=== PATIENT | female | born 1950 | race African-American/Black ===

== ENCOUNTER 2020-02-02 13:39 | Inpatient (IN) | payer BC ==
[~2020-02-02] VITALS: Ht 170.2 cm; Wt 70.3 kg
[2020-02-02] MEDS ORDERED: Morphine Sulfate 2mg/ml Inj(IV/IM USE ONLY) IVP ONE (14:00)
--- NOTE | 2020-02-02 14:30 | NUR ---
ED Nurse Note:pt. was BIBA from home with left ankle deformity and pain, s/p fall today, VSS, x-rays were done, pain meds given
[2020-02-02 14:41] LABS: BASOPHILS % (AUTO) 1.2 % (0.0-2.0); EOSINOPHILS % (AUTO) 1.4 % (0.0-3.0); HEMATOCRIT 37.6 % (37.0-47.0); HEMOGLOBIN 12.4 G/DL (12.0-16.0); LYMPHOCYTES % (AUTO) 32.2 % (20.0-45.0); MEAN CORPUSCULAR VOLUME 105 FL (80-99); MONOCYTES % (AUTO) 8.3 % (1.0-10.0); NEUTROPHILS % (AUTO) 56.9 % (45.0-75.0); PLATELET COUNT 237 K/UL (150-450); RED BLOOD COUNT 3.58 M/UL (4.20-5.40); RED CELL DISTRIBUTION WIDTH 12.7 % (11.6-14.8); WHITE BLOOD COUNT 6.4 K/UL (4.8-10.8)
[2020-02-02 14:52] LABS: CREATININE 1.1 MG/DL (0.55-1.30); POTASSIUM 3.7 MMOL/L (3.5-5.1)
--- NOTE | 2020-02-02 14:58 | Emergency Room Report ---
History of Present Illness General Chief Complaint: Lower Extremity Injury Source: Patient Present Illness HPI 69-year-old female presents to the emergency department complaining of 10 out of 10 severity pain to the bilateral ankles status post mechanical trip and fall approximately 1 hour prior to arrival. Patient describes missing a step. She denies dizziness, chest pain/palpitations or syncope. Patient denies hitting her head or having a loss of consciousness. She denies midline neck or back pain. She reports deformity of the left ankle. She denies paresthesias. She reports she is unable to bear weight. She denies any significant past medical history she denies taking any medications and did not take any hfun-[id number]-[id number] medications prior to arrival. She denies open wounds or bleeding. Allergies: Coded Allergies: No Known Allergies (Unverified , 02/02/20) COVID-19 Screening Contact w/high risk pt: No Experienced COVID-19 symptoms?: No COVID-19 Testing performed COMPLAINT INSPECTOR: No Patient History Past Medical History: see triage record Past Surgical History: none Pertinent Family History: none Now: No Reviewed Nursing Documentation: PMH: Agreed; PSxH: Agreed Nursing Documentation-PMH Past Medical History: No Stated History Review of Systems All Other Systems: negative except mentioned in HPI Physical Exam Vital Signs Date Time Temp Pulse Resp B/P (MAP) Pulse Ox O2 Delivery O2 Flow Rate FiO2 02/02/20 13:35 98.4 96 19 129/73 (91) 97 Room Air Sp02 EP Interpretation: reviewed, normal General Appearance: no apparent distress, alert, GCS 15, non-toxic Head: normocephalic, atraumatic Eyes: bilateral eye normal inspection, bilateral eye PERRL ENT: hearing grossly normal, normal voice Neck: full range of motion Respiratory: chest non-tender, lungs clear, normal breath sounds, speaking full sentences Cardiovascular #1: regular rate, rhythm, normal capillary refill Cardiovascular #2: 2+ dorsalis pedis (R), 2+ dorsalis pedis (L) Musculoskeletal: back normal, tender - proximal left index finger, FROM with some pain, other - Tenderness, swelling and and visible obvious deformity to the left ankle. 2+ dorsalis pedis and normal cap refill as well as normal sensation. There is tenderness to palpation but without swelling or deformity of the right ankle. Patient is in in the right foot as well. Neurologic: alert, motor strength/tone normal, oriented x3, sensory intact, responsive, speech normal Psychiatric: judgement/insight normal Skin: normal color Procedures Joint Reduction Joint Reduction : Consent: Verbal Joint Reduction Site: other - ankle Procedural Sedation: No Reduction Attempts: One Pre-Procedure NV Exam: Yes Post-Procedure NV Exam: Yes Post Joint Reduction Film: joint reduced Patient Tolerated: Well Complications: None Progress Patient was placed in short leg posterior with stirrup patient remains NBI both prior to and after application of the splint Medical Decision Making PA Attestation Dr. Cannon is my supervising Physician whom patient management has been discussed with. Diagnostic Impression: Primary Impression: Trimalleolar fracture of left ankle Qualified Codes: S82.852A - Displaced trimalleolar fracture of left lower leg, initial encounter for closed fracture Additional Impressions: Lateral malleolar fracture Qualified Codes: S82.64XA - Nondisplaced fracture of lateral malleolus of right fibula, initial encounter for closed fracture Finger fracture, left Qualified Codes: S62.641A - Nondisplaced fracture of proximal phalanx of left index finger, initial encounter for closed fracture ER Course 69-year-old female presents to the emergency department complaining of 10 out of 10 severity pain to the bilateral ankles status post mechanical trip and fall approximately 1 hour prior to arrival. Patient describes missing a step. She denies dizziness, chest pain/palpitations or syncope. Patient denies hitting her head or having a loss of consciousness. She denies midline neck or back pain. She reports deformity of the left ankle. She denies paresthesias. She reports she is unable to bear weight. She denies any significant past medical history she denies taking any medications and did not take any cmxj-xyz-szifcqa medications prior to arrival. She denies open wounds or bleeding. Ddx considered but are not limited to Fracture, dislocation, contusion, Sprain/Strain/Spasm, vascular injury Vital signs: are WNL, pt. is afebrile H&PE are most consistent with musculoskeletal injury will perform imaging to r/o fractures/dislocations. ORDERS: - X-ray Left ankle : Dislocation and fx's - x-ray Right ankle: lateral malleolar fx. --Preop labs: CBC, CMP and coags are within normal limits. -Type and screen: O Positive ED INTERVENTIONS: Left ankle was reduced and splinted in a short leg posterior splint. MVI before and after both procedures. Post reduction x-ray film shows improved anatomical positioning. Patient also reports that she had decrease in pain afterwards. - Morphine 2mg IV -Morphine 4mg IV On-call orthopedist Dr. Guerrier is consulted. Recommend admit and surgical intervention. DISPOSITION: at this time pt. will be admitted to Dr. Oh for trimalleolar fracture of the left ankle requiring surgical intervention Dr. Oh agreed to admit the pt. and to continue pt. care management. Labs Test 02/02/20 14:15 White Blood Count 6.4 K/UL (4.8-10.8) Red Blood Count 3.58 M/UL (4.20-5.40) Hemoglobin 12.4 G/DL (12.0-16.0) Hematocrit 37.6 % (37.0-47.0) Mean Corpuscular Volume 105 FL (80-99) Mean Corpuscular Hemoglobin 34.8 PG (27.0-31.0) Mean Corpuscular Hemoglobin Concent 33.1 G/DL (32.0-36.0) Red Cell Distribution Width 12.7 % (11.6-14.8) Platelet Count 237 K/UL (150-450) Mean Platelet Volume 7.0 FL (6.5-10.1) Neutrophils (%) (Auto) 56.9 % (45.0-75.0) Lymphocytes (%) (Auto) 32.2 % (20.0-45.0) Monocytes (%) (Auto) 8.3 % (1.0-10.0) Eosinophils (%) (Auto) 1.4 % (0.0-3.0) Basophils (%) (Auto) 1.2 % (0.0-2.0) Prothrombin Time 10.8 SEC (9.30-11.50) Prothromb Time International Ratio 1.0 (0.9-1.1) Activated Partial Thromboplast Time 24 SEC (23-33) Sodium Level 140 MMOL/L (136-145) Potassium Level 3.7 MMOL/L (3.5-5.1) Chloride Level 107 MMOL/L (98-107) Carbon Dioxide Level 26 MMOL/L (21-32) Anion Gap 7 mmol/L (5-15) Blood Urea Nitrogen 10 mg/dL (7-18) Creatinine 1.1 MG/DL (0.55-1.30) Estimat Glomerular Filtration Rate 49.4 mL/min (>60) Glucose Level 102 MG/DL (74-106) Calcium Level 9.0 MG/DL (8.5-10.1) EKG Diagnostic Results Troponin ordered: No - pre-op, not cardiac EKG Time: 16:40 Rate: normal - 65 bpm Rhythm: NSR ST Segments: no acute changes ASA given to the pt in ED: No PA Scribe Text This Interpretation was scribed by ELIDA Fuller. Chest X-Ray Diagnostic Results Chest X-Ray Diagnostic Results : Chest X-Ray Ordered: Yes # of Views/Limited/Complete: 1 View Indication: Other - Preoperative EP Interpretation: Yes PA Xray: Interpretation reviewed, by supervising MD, and agrees with findings. Interpretation: no consolidation, no effusion, no pneumothorax, no acute cardiopulmonary disease, other Impression: No acute disease Electronically Signed by: Daniella Fuller PA-C Other X-Ray Diagnostic Results Other X-Ray Diagnostic Results #1: X-Ray ordered: Left Ankle # of Views/Limited Vs Complete: 3 View Indication: Pain EP Interpretation: Yes PA Xray: Interpretation reviewed, by supervising MD, and agrees with findings. Interpretation: other - Posterior dislocation of the ankle in the presence of trimalleolar fracture Impression: Other - Abnormal Electronically Signed by: Daniella Fuller PA-C Other X-Ray Diagnostic Results #2: X-Ray ordered: Right ankle # of Views/Limited Vs Complete: 3 View Indication: Pain EP Interpretation: Yes PA Xray: Interpretation reviewed, by supervising MD, and agrees with findings. Interpretation: no dislocation, other - Nondisplaced fracture of the lateral malleolusdistal tibia Impression: Other - Abnormal Electronically Signed by: Daniella Fuller PA-C Other X-Ray Diagnostic Results #3: X-Ray ordered: X-ray Left fingers # of Views/Limited Vs Complete: 3 View Indication: Pain EP Interpretation: Yes PA Xray: Interpretation reviewed, by supervising , and agrees with findings. Interpretation: no dislocation, no soft tissue swelling, other - proximal Metacarpal fx of the 2nd phalynx Impression: No acute disease Electronically Signed by: Daniella Fuller PA-C Last Vital Signs Date Time Temp Pulse Resp B/P (MAP) Pulse Ox O2 Delivery O2 Flow Rate FiO2 02/02/20 14:53 98.5 02/02/20 13:35 96 19 129/73 (91) 97 Room Air Status: improved Disposition: ADMITTED INPATIENT Condition: Serious Scripts No Active Prescriptions or Reported Meds Daniella Fuller Feb 02, 2020 14:57
[2020-02-02] MEDS ORDERED: Morphine Sulfate 4mg/ml Inj (IV USE ONLY) IVP ONE (15:00)
--- NOTE | 2020-02-02 16:00 | NUR ---
ED Nurse Note:splints were placed on bilateral lower legs
[2020-02-02 18:14] VITALS: BP 124/75
--- NOTE | 2020-02-02 18:18 | NUR ---
ED Nurse Note:called report to [facility]-given to Susan pt. is stable for transfer up stairs
--- NOTE | 2020-02-02 18:40 | NUR ---
NURSE NOTES: Received pt from ER and report from SLICK Hardin. Pt was transferred via gurney. Pt alert and oriented x4, in RA, No respiratory distress note. Denied pain at this time. Checked vital signs, stable. All belongings were accounted for. Oriented pt to room. Bed in low position, locked. Side rails upx2. Call light within reach.
[2020-02-02] MEDS ORDERED: Miralax 17gm pkt ORAL PRN (18:45)
[2020-02-02] MEDS ORDERED: Zolpidem 5mg tab ORAL PRN (18:45)
[2020-02-02] MEDS ORDERED: D5 1/2NS 1,000 ML IV SCH (18:45)
--- NOTE | 2020-02-02 19:30 | NUR ---
NURSE NOTES: Receive a report from SLICK Marshall.
--- NOTE | 2020-02-02 19:36 | NUR ---
NURSE HAND-OFF: Important Events on Shift:[Admission] Patient Status: [stable] Diet: [NPO at midnight] Pending Orders: [] Pending Results/Labs:[] Pending MD notification:[] Latest Vital Signs: Temperature 98.5 , Pulse 86 , B/P 124 /75 , Respiratory Rate 19 , O2 SAT 97 , Room Air, O2 Flow Rate . Vital Sign Comment: [stable] Latest Ames Fall Score: Fall Risk: Safety Measures: Call light , Bed Alarm , Side Rails , Bed position . Fall Precautions: Report given to [KonstantinRN].
--- NOTE | 2020-02-02 19:40 | NUR ---
NURSE NOTES: Pt is awake and alert. No acute distress noted. Pain on fracture sites on ankles is tolerating. Sensory intact. On splint on left ankle with elevation. IV is on left AC without infiltration. Skin intact. Given unit orientation. Bed is lowest. Call light within reach. Will continue to monitor.
[2020-02-02 20:00] VITALS: BP 135/87
[2020-02-02] MEDS: Heparin 5000 units/ml inj SUBQ SCH (23:09)
--- NOTE | 2020-02-02 23:45 | NUR ---
NURSE NOTES: Receive an order for pain from Dr. Beckford. Order noted and carried out. Will continue to monitor.
[2020-02-03] VITALS (16 sets, daily range): BP systolic 113–142; BP diastolic 59–80
[2020-02-03] MEDS: Morphine Sulfate 2mg/ml Inj(IV/IM USE ONLY) IVP PRN ×2 (00:31→12:10)
[2020-02-03 06:48] LABS: BASOPHILS % (AUTO) 0.8 % (0.0-2.0); EOSINOPHILS % (AUTO) 1.2 % (0.0-3.0); HEMATOCRIT 35.7 % (37.0-47.0); HEMOGLOBIN 11.5 G/DL (12.0-16.0); LYMPHOCYTES % (AUTO) 30.1 % (20.0-45.0); MEAN CORPUSCULAR VOLUME 107 FL (80-99); MONOCYTES % (AUTO) 10.7 % (1.0-10.0); NEUTROPHILS % (AUTO) 57.2 % (45.0-75.0); PLATELET COUNT 216 K/UL (150-450); RED BLOOD COUNT 3.33 M/UL (4.20-5.40); RED CELL DISTRIBUTION WIDTH 12.6 % (11.6-14.8)
[2020-02-03 07:22] LABS: ALANINE AMINOTRANSFERASE 18 U/L (12-78); ALBUMIN 3.2 G/DL (3.4-5.0); ALBUMIN/GLOBULIN RATIO 0.9 (1.0-2.7); ALKALINE PHOSPHATASE 59 U/L (46-116); ANION GAP 6 mmol/L (5-15); ASPARTATE AMINO TRANSFERASE 24 U/L (15-37); BILIRUBIN,TOTAL 0.6 MG/DL (0.2-1.0); BLOOD UREA NITROGEN 10 mg/dL (7-18); CALCIUM 8.8 MG/DL (8.5-10.1); CARBON DIOXIDE 27 MMOL/L (21-32); CHLORIDE 106 MMOL/L (98-107); POTASSIUM 3.7 MMOL/L (3.5-5.1); SODIUM 139 MMOL/L (136-145)
--- NOTE | 2020-02-03 07:30 | NUR ---
NURSE HAND-OFF: Important Events on Shift:Admission/ Pain control-Given pain medicationx1, Provide education for pre-op Patient Status: stable Diet: NPO except ice chips and po medication Pending Orders: [-] Pending Results/Labs:[] Pending MD notification:[] Latest Vital Signs: Temperature 98.5 , Pulse 73 , B/P 114 /69 , Respiratory Rate 18 , O2 SAT 97 , Room Air, O2 Flow Rate . Vital Sign Comment: [] Latest Ames Fall Score: 80 Fall Risk: High Risk Safety Measures: Call light Within Reach, Bed Alarm , Side Rails Side Rails x2, Bed position Low and Locked. Fall Precautions: Yellow Gown Door Sign Patient Fall Education Report given to SLICK Padgett. Round is done.
--- NOTE | 2020-02-03 07:30 | NUR ---
NURSE NOTES: Patient is in bed awake and able to verbalize needs. Stable. Denies severe pain or SOB at this time. Patient instructed to use call light for assistance, verbalized understanding. Splint noted on left lower leg. Patient is in bed in locked and lowest position with call light within reach. Will continue to monitor.
[2020-02-03] MEDS: Heparin 5000 units/ml inj SUBQ SCH ×2 (08:59→21:41)
--- NOTE | 2020-02-03 09:13 | Consultation ---
Consult Note Consult Note pleasant 69 yo female with unfortunate fall yesterday sustaining left ankl fx/dislocation, rt non displaced fibular fx, and left index finger non displaced proximal phalanx chip fracture PMH none PSH microdiscectomy 20 years ago xrays reviewed left ankle trimalleolar displaced fracture/dislocation right ankle non displaced distal fibular fracture left index finger small non displaced chip fx of proximal phalanx Assessment/Plan plan: left index finger splint with follow up xrays and progressive ROM over the next few weeks right ankle splint with follow up xrays and plan to transition to a CAM walker boot over the next few weeks left ankle ORIF today- risks/benefits discussed with pt and daughter at bedside med clearance with Dr Oh today plan for d/c home tomorrow with all meds and f/u with Dr henao for next week to transition left LE into a cast pt has most DME at home already, would benefit from a bedside commode prior to d/c. have ordered via case management Jocelyne Patel Feb 03, 2020 09:13
[2020-02-03] MEDS ORDERED: D5 1/2NS 1000ml IV ONE (09:32)
--- NOTE | 2020-02-03 12:36 | NUR ---
NURSE NOTES: Patient taken down to surgery.
--- NOTE | 2020-02-03 12:45 | Consultation ---
DATE OF CONSULTATION: 02/03/2020 CONSULTING PHYSICIAN: Alfredo Guerrier MD. REFERRING PHYSICIAN: Adam Oh MD. REASON FOR CONSULTATION: Consult was called by Dr. Oh for concern of multiple fractures. HISTORY OF PRESENT ILLNESS: The patient is a very pleasant 69-year-old female who unfortunately yesterday slipped down some steps sustaining injuries to the right and left ankle as well as left hand. She was taken to [facility] ER by her children and was found to have multiple fractures including a left ankle fracture dislocation, a right ankle with nondisplaced distal fibular fracture, and a left hand index proximal phalanx fracture. She has been placed in a finger splint on the left index finger and two well-padded sugar-tong splint on the lower extremities. Orthopedic consult has been called. The patient denies significant pain in the right ankle or the left hand, however, her left ankle is significantly painful. She is icing and elevating and has been on bedrest since her arrival last night. PAST MEDICAL HISTORY: None. PAST SURGICAL HISTORY: Microdiskectomy 20 years ago. CURRENT MEDICATIONS: Please see chart. ALLERGIES: None. SOCIAL HISTORY: She is a . She has children who live in the area. She is independent with all activities at baseline and very active with exercise. She does not smoke or drink. PHYSICAL EXAMINATION: GENERAL: She is a very pleasant woman. She is cooperative with examination. EXTREMITIES: Her left index finger is in a well-padded finger splint. There is some slight swelling around the PIP joint with bruising in this area. She can flex at the DIP joint and the MP joint, however, has painful range of motion at the PIP joint and tenderness on the radial side. Examination of the right lower extremity, she is in a well-padded splint. She has elevated. She can wiggle her toes. She can bend her knee back and forth. On examination of the left leg, she is in a well-padded splint with swelling of the toes, however, she can wiggle them. Her sensation appears intact. She has significant pain in the left lower extremity, she has to elevate it. IMAGING: X-rays were reviewed. Left hand x-rays reveal a nondisplaced chip fracture of the proximal phalanx at the level of the PIP joint on the radial side. X-ray of the right ankle reveals a nondisplaced distal fibular fracture with an intact mortise. X-rays of the left ankle both pre- and postreduction are reviewed. There is a significant fracture dislocation with trimalleolar fracture in multiple components with disruption of the mortise. IMPRESSION AND PLAN: I discussed with the patient and her daughter at bedside the nature of these injuries and plan for treatment. She understands this left index finger fracture will go on to healing. We will keep her in the finger splint for the next two weeks to stabilize this. For the rest of the right ankle, we will keep her in a well-padded splint for now. We will plan to follow up with her next week for updated x-rays and possibly transition her to a Cam Walker boot over the next 1 to 2 weeks. With regard to the left ankle, she understands she will require surgery for this and we will plan on open reduction and internal fixation procedure later this afternoon. She knows she will have plates and screws and be in a cast for four to six weeks while this heals. She understands she will be nonweightbearing on this side. The risks of surgery including nerve injury, vessel injury, risk of infection, bleeding, risk of fracture, continued pain, hardware failure, and need for revision surgery down the line was all discussed. She understands well and she wants to get this done. She is currently NPO, which is appropriate. We will have Dr. Oh see her for preoperative medical clearance and we will likely discharge her home tomorrow. She lives with her daughter in a one-story home. She will be nonweightbearing on the left side and toe-touch weightbearing only on the right side. She has a wheelchair already. She has a walker at home. She also has crutches. We will facilitate getting her bedside commode and ensure she has all pain medications to take home with her tomorrow. I will also plan to see her as an outpatient next week to get updated x-rays and likely transition her to a cast on the left side and possibly a Cam walker boot on the right side when we see her back. All questions were answered. We will proceed with surgery as arranged for later today. Thank you for allowing me to participate in the care of this patient. If there are any questions or concerns, please do not hesitate to contact me. Alfredo Guerrier M.D. Anna Owens DR: JONATAN JOB#: [id number] CC:
[2020-02-03] MEDS ORDERED: EPINEPHrine 1mg/1ml Amp ONE (12:57)
[2020-02-03] MEDS ORDERED: Ropivacaine 5mg/ml Vial 30ml INJ ONE (12:57)
[2020-02-03] MEDS ORDERED: Lidocaine 1%/ 10mg/ml/EPI 0.01mg/ml 20ml INJ ONE (12:57)
[2020-02-03] MEDS ORDERED: Bupivacaine 0.5% Inj 30 ml vial INJ ONE (12:58)
[2020-02-03] MEDS ORDERED: Bacitracin 50000 Units Vial ONE (12:58)
--- NOTE | 2020-02-03 13:06 | History & Physical ---
History and Physical History & Physicial Adam Oh MD Feb 03, 2020 13:06
--- NOTE | 2020-02-03 13:09 | Pre-Procedure Note/Attestation ---
Pre-Procedure Note/Attestation Complete Prior to Procedure Planned Procedure: left Procedure Narrative: left ankle ORIF Indications for Procedure Pre-Operative Diagnosis: Left ankle fracture Attestation I attest that I discussed the nature of the procedure; its benefits; risks and complications; and alternatives (and the risks and benefits of such alternatives), prior to the procedure, with the patient (or the patient's legal safety representative). I attest that, if there was a reasonable possibility of needing a blood transfusion, the patient (or the patient's legal safety representative) was given the [facility] standardized written summary, pursuant to the Marcel Pérez Blood Safety Act ([place] Health and Safety Code # 1645, as amended). I attest that I re-evaluated the patient just prior to the surgery and that there has been no change in the patient's H&P, except as documented below: NONE Alfredo Guerrier MD Feb 03, 2020 13:09
--- NOTE | 2020-02-03 13:24 | Consultation ---
History of Present Illness General Chief Complaint: Lower Extremity Injury Present Illness Allergies: Coded Allergies: No Known Allergies (Unverified , 02/02/20) Medication History No Active Prescriptions or Reported Meds Patient History Healthcare decision maker Resuscitation status Advanced Directive on File Physical Exam Last 24 Hour Vital Signs Date Time Temp Pulse Resp B/P (MAP) Pulse Ox O2 Delivery O2 Flow Rate FiO2 02/03/20 12:00 98.1 72 20 137/67 (90) 99 02/03/20 09:00 Room Air 02/03/20 08:00 98.4 72 18 125/65 (85) 98 02/03/20 04:00 98.5 73 18 114/69 (84) 97 02/03/20 00:00 98.6 73 18 127/67 (87) 99 02/02/20 21:00 Room Air 02/02/20 20:00 98.6 75 18 135/87 (103) 98 02/02/20 18:19 98.5 86 19 124/75 97 Room Air 02/02/20 18:14 98.5 86 19 124/75 97 Room Air 02/02/20 15:42 98.5 02/02/20 14:53 98.5 02/02/20 13:35 98.4 96 19 129/73 (91) 97 Room Air Intake and Output 02/02/20 02/03/20 19:00 07:00 Intake Total 350 ml Balance 350 ml Intake IV Total 350 ml # Voids 1 1 Laboratory Tests Test 02/02/20 14:15 02/03/20 04:50 White Blood Count 6.4 K/UL (4.8-10.8) 7.0 K/UL (4.8-10.8) Red Blood Count 3.58 M/UL (4.20-5.40) L 3.33 M/UL (4.20-5.40) L Hemoglobin 12.4 G/DL (12.0-16.0) 11.5 G/DL (12.0-16.0) L Hematocrit 37.6 % (37.0-47.0) 35.7 % (37.0-47.0) L Mean Corpuscular Volume 105 FL (80-99) H 107 FL (80-99) H Mean Corpuscular Hemoglobin 34.8 PG (27.0-31.0) H 34.6 PG (27.0-31.0) H Mean Corpuscular Hemoglobin Concent 33.1 G/DL (32.0-36.0) 32.3 G/DL (32.0-36.0) Red Cell Distribution Width 12.7 % (11.6-14.8) 12.6 % (11.6-14.8) Platelet Count 237 K/UL (150-450) 216 K/UL (150-450) Mean Platelet Volume 7.0 FL (6.5-10.1) 6.5 FL (6.5-10.1) Neutrophils (%) (Auto) 56.9 % (45.0-75.0) 57.2 % (45.0-75.0) Lymphocytes (%) (Auto) 32.2 % (20.0-45.0) 30.1 % (20.0-45.0) Monocytes (%) (Auto) 8.3 % (1.0-10.0) 10.7 % (1.0-10.0) H Eosinophils (%) (Auto) 1.4 % (0.0-3.0) 1.2 % (0.0-3.0) Basophils (%) (Auto) 1.2 % (0.0-2.0) 0.8 % (0.0-2.0) Prothrombin Time 10.8 SEC (9.30-11.50) Prothromb Time International Ratio 1.0 (0.9-1.1) Activated Partial Thromboplast Time 24 SEC (23-33) Sodium Level 140 MMOL/L (136-145) 139 MMOL/L (136-145) Potassium Level 3.7 MMOL/L (3.5-5.1) 3.7 MMOL/L (3.5-5.1) Chloride Level 107 MMOL/L (98-107) 106 MMOL/L (98-107) Carbon Dioxide Level 26 MMOL/L (21-32) 27 MMOL/L (21-32) Anion Gap 7 mmol/L (5-15) 6 mmol/L (5-15) Blood Urea Nitrogen 10 mg/dL (7-18) 10 mg/dL (7-18) Creatinine 1.1 MG/DL (0.55-1.30) 1.0 MG/DL (0.55-1.30) Estimat Glomerular Filtration Rate 49.4 mL/min (>60) > 60 mL/min (>60) Glucose Level 102 MG/DL (74-106) 97 MG/DL (74-106) Calcium Level 9.0 MG/DL (8.5-10.1) 8.8 MG/DL (8.5-10.1) Total Bilirubin 0.6 MG/DL (0.2-1.0) Aspartate Amino Transf (AST/SGOT) 24 U/L (15-37) Alanine Aminotransferase (ALT/SGPT) 18 U/L (12-78) Alkaline Phosphatase 59 U/L (46-116) Total Protein 6.8 G/DL (6.4-8.2) Albumin 3.2 G/DL (3.4-5.0) L Globulin 3.6 g/dL Albumin/Globulin Ratio 0.9 (1.0-2.7) L Thyroid Stimulating Hormone (TSH) 1.563 uiU/mL (0.358-3.740) Microbiology Date/Time Source Procedure Growth Status 02/02/20 15:15 Nasopharynx SARS-CoV-2 RdRp Gene Assay - Final Complete Height (Feet): 5 Height (Inches): 7.00 Weight (Pounds): 155 Medications Current Medications Medications (Trade) Dose Ordered Sig/John Route PRN Reason Start Time Stop Time Status Last Admin Dose Admin Acetaminophen (Tylenol) 650 mg EVERY 6 HOURS PRN ORAL FEVER 02/03/20 13:15 03/04/20 13:14 UNV Acetaminophen (Tylenol) 650 mg Q4H PRN ORAL Temp >100.5 02/02/20 18:45 03/03/20 18:44 02/02/20 23:06 Acetaminophen/ Hydrocodone Bitart ([place] 5/325) 1 tab Q4H PRN ORAL For Pain 02/03/20 13:15 02/10/20 13:14 UNV Aspirin (ASA) 325 mg BID ORAL 02/04/20 09:00 03/20/20 08:59 UNV Celecoxib (CeleBREX) 200 mg DAILY ORAL 02/04/20 09:00 05/04/20 08:59 UNV Dextrose (Dextrose 50%) 25 ml Q30M PRN IV Hypoglycemia 02/02/20 18:45 05/02/20 18:44 Dextrose (Dextrose 50%) 50 ml Q30M PRN IV Hypoglycemia 02/02/20 18:45 05/02/20 18:44 Dextrose/Sodium Chloride 1,000 ml @ 50 mls/hr Q20H IV 02/02/20 18:45 03/03/20 18:44 02/02/20 23:07 Dextrose/Sodium Chloride 1,000 ml @ 75 mls/hr Q13H IV 02/03/20 13:15 03/04/20 13:14 UNV Docusate Sodium (Colace) 100 mg THREE TIMES A DAY ORAL 02/03/20 18:00 03/04/20 17:59 UNV Heparin Sodium (Porcine) (Heparin 5000 units/ml) 5,000 units EVERY 12 HOURS SUBQ 02/02/20 21:00 03/18/20 20:59 02/02/20 23:09 Hydromorphone HCl (Dilaudid) 0.5 mg Q4H PRN SUBQ Mild Pain (Pain Scale 1-3) 02/03/20 13:15 02/10/20 13:14 UNV Hydromorphone HCl (Dilaudid) 1 mg Q3H PRN SUBQ Moderate Pain (Pain Scale 4-6) 02/03/20 13:15 02/10/20 13:14 UNV Morphine Sulfate (Morphine Sulfate) 2 mg Q6H PRN IVP MODERATE TO SEVERE PAIN 02/03/20 00:00 02/10/20 00:00 02/03/20 12:10 Ondansetron HCl (Zofran) 4 mg Q6H PRN IVP Nausea & Vomiting 02/02/20 18:45 03/03/20 18:44 Ondansetron HCl (Zofran) 4 mg Q6H PRN IVP Nausea & Vomiting 02/03/20 13:15 03/04/20 13:14 UNV Oxycodone HCl (OxyCONTIN) 10 mg EVERY 12 HOURS ORAL 02/03/20 21:00 02/10/20 20:59 UNV Pantoprazole (Protonix) 40 mg DAILY ORAL 02/04/20 09:00 03/05/20 08:59 UNV Polyethylene Glycol (Miralax) 17 gm HSPRN PRN ORAL Constipation 02/02/20 18:45 03/03/20 18:44 Temazepam (RestoriL) 7.5 mg HSPRN PRN ORAL Insomnia 02/03/20 13:15 02/10/20 13:14 UNV Zolpidem Tartrate (Ambien) 5 mg HSPRN PRN ORAL Insomnia 02/02/20 18:45 02/09/20 18:44 Tess Beckford MD Feb 03, 2020 13:24
[2020-02-03] MEDS ORDERED: Sterile Water Irrig 1000ml IRRIG ONE (13:40)
[2020-02-03] MEDS ORDERED: LR 1000ml ONE (13:40)
[2020-02-03] MEDS ORDERED: NS Irrig 1000ml ONE (13:40)
[2020-02-03] MEDS ORDERED: Midazolam 2mg/2ml Inj ONE (13:44)
[2020-02-03] MEDS ORDERED: fentaNYL 100 mcg/2 mL IV ONE ×2 (13:44→14:36)
--- NOTE | 2020-02-03 13:55 | NUR ---
CASE MANAGEMENT:REVIEW 69 YR OLD FEMALE BIBA CC: MISSED A STEP AND FELL. LEFT ANKLE PAIN SI: LT TRIMALLEOLAR ANKLE FRACTURE LT FINGER FRACTURE 98.5 96 19 129/73 97% ON RA IS: IV MORPHINE X2 CXR XRAY ANKLE AND FINGERS TYPE & SCREEN : TO MED/SURG [facility] 02/03/20 SI: LEFT ANKLE FRACTURE 98.1 72 20 137/67 99% ON RA H/H-11.5/35.7 IS: TO SURGERY FOR LT ANKLE ORIF PROTONIX PO QD ASA PO QD CELEBREX PO QD IV MORPHINE Q6HRS PRN HEPARIN SQ Q12 IVF@50/HR : MED/SURG DCP: DISCHARGE HOME WITH DME. PRESCRIPTION GIVEN. OUTPATIENT APPOINTMENT
[2020-02-03] MEDS ORDERED: Metoclopramide 10mg/2ml Inj ONE (14:09)
[2020-02-03] MEDS ORDERED: Lidocaine 1% MPF 10mg/ml 5ml ONE (14:09)
[2020-02-03] MEDS ORDERED: Acetaminophen (Non formulary) 100 ML IV ONE (14:15)
--- NOTE | 2020-02-03 14:23 | Anethesia Preoperative Eval ---
Anesthesia Pre-op PMH/ROS General Date of Evaluation: Feb 03, 2020 Time of Evaluation: 13:45 Anesthesiologist: theodore ASA Score: ASA 2 Mallampati Score Class I : Soft palate, uvula, fauces, pillars visible Class II: Soft palate, uvula, fauces visible Class III: Soft palate, base of uvula visible Class IV: Only hard plate visible Mallampati Classification: Class II Surgeon: Luisa Diagnosis: ankle fx Surgical Procedure: left ankle ORIF Anesthesia History: none Family History: no anesthesia problems Allergies: Coded Allergies: No Known Allergies (Unverified , 02/02/20) Medications: see eMAR Patient NPO?: Yes NPO Date: Feb 03, 2020 NPO Time: 00:01 Past Medical History Cardiovascular: Denies: HTN, CAD, [place], valve dz, arrhythmia, other Pulmonary: Denies: asthma, COPD, MINH, other Gastrointestinal/Genitourinary: Denies: GERD, CRI, ESRD, other Neurologic/Psychiatric: Reports: depression/anxiety; Denies: dementia, CVA, TIA, other Endocrine: Denies: DM, hypothyroidism, steroids, other HEENT: Denies: cataract (L), cataract (R), glaucoma, [place] (L), [place] (R), other Hematology/Immune: Denies: anemia, DVT, bleeding disorder, other Musculoskeletal/Integumentary: Denies: OA, RA, DJD, DDD, edema, other PSxH Narrative: microdisectomy Anesthesia Pre-op Phys. Exam Physician Exam Last Vital Signs Date Time Temp Pulse Resp B/P (MAP) Pulse Ox O2 Delivery O2 Flow Rate FiO2 02/03/20 12:00 98.1 72 20 137/67 (90) 99 02/03/20 09:00 Room Air Constitutional: NAD Neurologic: CN 2-12 intact Cardiovascular: RRR Respiratory: CTA Gastrointestinal: S/NT/ND Airway Exam Mallampati Classification 2 Mallampati Score: Class II MO: full ROM: full Dentures: no upper, no lower Anesthesia Pre-op A/P Labs Hematology Test 02/03/20 04:50 White Blood Count 7.0 K/UL (4.8-10.8) Red Blood Count 3.33 M/UL (4.20-5.40) L Hemoglobin 11.5 G/DL (12.0-16.0) L Hematocrit 35.7 % (37.0-47.0) L Mean Corpuscular Volume 107 FL (80-99) H Mean Corpuscular Hemoglobin 34.6 PG (27.0-31.0) H Mean Corpuscular Hemoglobin Concent 32.3 G/DL (32.0-36.0) Red Cell Distribution Width 12.6 % (11.6-14.8) Platelet Count 216 K/UL (150-450) Mean Platelet Volume 6.5 FL (6.5-10.1) Neutrophils (%) (Auto) 57.2 % (45.0-75.0) Lymphocytes (%) (Auto) 30.1 % (20.0-45.0) Monocytes (%) (Auto) 10.7 % (1.0-10.0) H Eosinophils (%) (Auto) 1.2 % (0.0-3.0) Basophils (%) (Auto) 0.8 % (0.0-2.0) Chemistry Test 02/03/20 04:50 Sodium Level 139 MMOL/L (136-145) Potassium Level 3.7 MMOL/L (3.5-5.1) Chloride Level 106 MMOL/L (98-107) Carbon Dioxide Level 27 MMOL/L (21-32) Anion Gap 6 mmol/L (5-15) Blood Urea Nitrogen 10 mg/dL (7-18) Creatinine 1.0 MG/DL (0.55-1.30) Estimat Glomerular Filtration Rate > 60 mL/min (>60) Glucose Level 97 MG/DL (74-106) Calcium Level 8.8 MG/DL (8.5-10.1) Total Bilirubin 0.6 MG/DL (0.2-1.0) Aspartate Amino Transf (AST/SGOT) 24 U/L (15-37) Alanine Aminotransferase (ALT/SGPT) 18 U/L (12-78) Alkaline Phosphatase 59 U/L (46-116) Total Protein 6.8 G/DL (6.4-8.2) Albumin 3.2 G/DL (3.4-5.0) L Globulin 3.6 g/dL Albumin/Globulin Ratio 0.9 (1.0-2.7) L Thyroid Stimulating Hormone (TSH) 1.563 uiU/mL (0.358-3.740) Studies Pre-op Studies: EKG - sr Risk Assessment & Plan Plan: general Status Change Before Surgery: No Pre-Antibiotics Drug: ancef Given Within 1 Hr of Incision: Yes Time Given: 13:46 Alejandra Edge LANDSCAPE ARCHITECTURE PROFESSOR Feb 03, 2020 14:23
--- NOTE | 2020-02-03 14:27 | Diagnostic Imaging Report ---
Indication: Finger pain status post injury Technique: 3 views of the left fingers (left second digit) Comparison: None Findings: Bony mineralization within normal limits. There is a acute fracture involving the radial aspect of the base of the second proximal phalanx. No appreciable soft tissue laceration. No radiopaque foreign body. IMPRESSION: Small acute fracture involving the radial aspect of the base of the second proximal phalanx
[2020-02-03] MEDS ORDERED: Metoclopramide 10mg/2ml Inj IVP PRN (14:30)
[2020-02-03] MEDS ORDERED: Meperidine 25mg/1ml Inj (FOR RIGORS ONLY) IV PRN (14:30)
[2020-02-03] MEDS ORDERED: fentaNYL 100 mcg/2 mL IV PRN (14:30)
[2020-02-03] MEDS ORDERED: Hydromorphone 0.5mg/0.5ml inj IVP PRN (14:30)
[2020-02-03] MEDS ORDERED: DiphenhydrAMINE 50mg/ml Inj IVP PRN (14:30)
--- NOTE | 2020-02-03 15:01 | Brief Operative Note ---
Immediate Post Operative Note Operative Note Pre-op Diagnosis: Left ankle fracture Procedure: left ankle ORIF lateral and medial malleolus with shonna plates and screws Post-op Diagnosis: same as pre-op Surgeon: Chey Needle Leader: Amanda Anesthesiologist: Alejandra PATRICIO Anesthesia: general Specimen: none Complications: none Condition: stable Fluids: 500 cc crystoloids Estimated Blood Loss: minimal - 50cc Drains: none Implant(s) used?: Yes - shonna locking plates and screws and malleolar screws Alfredo Guerrier MD Feb 03, 2020 15:01
[2020-02-03] MEDS ORDERED: Ketorolac 30mg Inj ONE (15:20)
--- NOTE | 2020-02-03 15:44 | Immediate Post-Op Evaluation ---
Immediate Post-Op Evalulation Immediate Post-Op Evalulation Procedure: left ankle ORIF Date of Evaluation: Feb 03, 2020 Time of Evaluation: 15:44 IV Fluids: 750 Blood Products: 0 Estimated Blood Loss: 20 Blood Pressure Systolic: 140 Blood Pressure Diastolic: 66 Pulse Rate: 79 Respiratory Rate: 14 O2 Sat by Pulse Oximetry: 99 Temperature (Fahrenheit): 97.8 Nausea: No Vomiting: No Complications none Patient Status: awake, reacts, patent Hydration Status: adequate Drug: ancef Given Within 1 Hr of Incision: Yes Time Given: 13:46 Alejandra Edge CRNA Feb 03, 2020 15:44
--- NOTE | 2020-02-03 16:25 | Cardiology Report ---
APPROVED REPORT EKG Measurement Heart [id number] <Conclusion> Normal sinus rhythm Low voltage QRS Borderline ECG
--- NOTE | 2020-02-03 16:46 | Diagnostic Imaging Report ---
Indication: Chest pain Technique: XRAY Chest 1v Comparison: None Findings: Heart size and mediastinal contours are within normal limits for AP technique. There is no focal airspace consolidation, pneumothorax or pleural effusion. Mild scoliosis. Osseous structures demonstrate no acute abnormality. Impression: No radiographic evidence of acute cardiopulmonary disease.
--- NOTE | 2020-02-03 16:52 | Diagnostic Imaging Report ---
Indication: Ankle pain status post injury Technique: 3 views of the left ankle Comparison: None Findings: Acute fracture dislocation of the ankle. There is an acute, significantly displaced fracture of the distal fibula. Fracture of the medial malleolus with comminution and displacement. Fracture posterior malleolus is also noted. There is dislocation of the talotibial joint. No opaque foreign body. Impression: Trimalleolar ankle fracture with associated ankle dislocation
--- NOTE | 2020-02-03 16:53 | Diagnostic Imaging Report ---
Indication: Ankle pain status post injury Technique: 3 views of the right ankle Comparison: None FINDINGS/IMPRESSION: There is an acute transverse fracture of the distal fibula below the level of the syndesmosis. Ankle mortise is intact on these nonstress views. Imaged portions of the hindfoot unremarkable. No radiopaque foreign body.
--- NOTE | 2020-02-03 16:54 | Diagnostic Imaging Report ---
Indication: Left ankle pain, fracture. Status post closed reduction and casting. Technique: 4 views of the left ankle Comparison: Earlier the same day Findings: Trimalleolar fracture status post closed reduction and the casting with improved alignment of the tibiotalar joint. There is persistent abnormal widening of the medial clear space. Impression: Trimalleolar fracture of the ankle with improved alignment status post closed reduction and casting.
--- NOTE | 2020-02-03 16:57 | NUR ---
NURSE NOTES: Patient arrived on unit. Stable. Denies severe pain or SOB. Patient instructed to use call light for assistance, verbalized understanding. Surgical dressing c/d/i. Dr. Oh made rounds, patient and patient's daughter made aware of new plan of care. All safety measures provided. All needs met at this time. Will continue to monitor.
--- NOTE | 2020-02-03 17:04 | Diagnostic Imaging Report ---
CLINICAL HISTORY: Ankle pain, fracture. COMPARISON: Concurrent diagnostic ankle radiographs FINDINGS: Fluoroscopy independent procedure performed for the PICC surgery. 8.9 seconds of fluoroscopy time utilized by the ordering physician. Total cumulative dose is 0.24 mGy and 0.0075 mGy*m2. Total of 4 spot images are obtained. IMPRESSION: FLUOROSCOPY GUIDED PROCEDURE.
--- NOTE | 2020-02-03 17:06 | NUR ---
*-*discharge planning*-* S/W EDYTA [facility] P: [phone], BOOT ORDERED , SCHEDULED FOR TOMORROW
--- NOTE | 2020-02-03 17:30 | NUR ---
NURSE NOTES: Prescription given to daughter.
[2020-02-03] MEDS ORDERED: Hydromorphone 0.5mg/0.5ml inj SUBQ PRN (18:00)
[2020-02-03] MEDS ORDERED: HYDROmorphone 1mg/ml Carpuject SUBQ PRN (18:00)
[2020-02-03] MEDS ORDERED: HYDROcodone/Acetamin 5/325 tab ORAL PRN (18:00)
[2020-02-03] MEDS ORDERED: D5 1/2NS 1,000 ML IV SCH (18:30)
--- NOTE | 2020-02-03 19:29 | NUR ---
NURSE HAND-OFF: Important Events on Shift:s/p surgery Patient Status: stable Diet: clear Pending Orders: n/a Pending Results/Labs:n/a Pending MD notification:n/a Latest Vital Signs: Temperature 98.1 , Pulse 62 , B/P 118 /69 , Respiratory Rate 18 , O2 SAT 96 , Room Air, O2 Flow Rate 6 . Vital Sign Comment: n/a Latest Ames Fall Score: 60 Fall Risk: High Risk Safety Measures: Call light Within Reach, Bed Alarm , Side Rails Side Rails x2, Bed position Low and Locked. Fall Precautions: Yellow Gown Door Sign Patient Fall Education Report given to Konstantin KRUGER.
--- NOTE | 2020-02-03 19:30 | NUR ---
NURSE NOTES: Receive a report from SLICK Padgett. Round is done. Pt is awake and alert. No acute distress noted. S/P surgery on left ankle fracture. Dressing kept dry and clean and elevated with pillow. Pain is minimal at this time. Motor and sensory on both feet intact. Encourage oral hydration. Void in bed with bed ibrahim. Call light within reach. Will continue to monitor. And will follow up her belonging @ PACU tomorrow.
--- NOTE | 2020-02-03 19:48 | Diagnostic Imaging Report ---
EXAM: XR Left Ankle Complete, 3 or More Views CLINICAL HISTORY: POST-OP TECHNIQUE: Frontal, lateral and oblique views of the left ankle. COMPARISON: X-rays, 02/02/2020. FINDINGS: Bones/joints: Postsurgical changes from ORIF distal fibula with sideplate and screw fixation and medial malleolus with screws. Hardware is intact. Improved anatomic alignment. Unchanged nondisplaced posterior malleolar fracture. Soft tissues: Soft tissue swelling surrounding the ankle. IMPRESSION: Stable postsurgical changes from ORIF of the distal fibula and medial malleolus.
--- NOTE | 2020-02-03 20:45 | Operative Note - Dictated ---
DATE OF OPERATION: 02/02/2020 PREOPERATIVE DIAGNOSIS: Left ankle bimalleolar fracture with dislocation of tibiotalar joint. POSTOPERATIVE DIAGNOSIS: Left ankle bimalleolar fracture with dislocation of tibiotalar joint. PROCEDURE: Open reduction and internal fixation of left ankle bimalleolar fracture with Jaimee locking plate with 2 distal locking screws and 3 proximal nonlocking screws and medial malleolar ORIF with two 36 mm partially threaded cancellous malleolar screws. SURGEON: Alfredo Guerrier MD ADULT SCHOOL COUNSELOR: Jocelyne Patel PA-C [place] was present during the actual operative portion of the case and was important and essential part of the operation. During the operation, the behavioral health assistant held and operated the arthroscopic camera for visualization, assisted by manipulating the arm to help with visualization, and helped with essential parts of the repair process as necessary such as operating surgical instruments under surgeon supervision, suture management, and wound closures. ANESTHESIOLOGIST: Alejandra Edge CRNA ANESTHESIA: General LMA anesthesia. ESTIMATED BLOOD LOSS: Less than 50 mL. COMPLICATIONS: None. TOURNIQUET TIME: 55 minutes. BRIEF HISTORY: The patient is a very pleasant 69-year-old female who sustained a mechanical fall from some steps and broke bilateral ankles, the right ankle with a nondisplaced lateral malleolar fracture and the left ankle with a bimalleolar fracture-dislocation. This was reduced in the ER. This was a closed fracture. After full discussion of recommended surgery and complications associated with it including infection, bleeding, neurovascular complication, possibility of malunion, possibility of nonunion, possibility of DVT, PE, and other complications that may arise down the line, she opted for surgical treatment as described above. OPERATIVE PROCEDURE: The patient was brought to the operating table and was placed supine. All pressure points were well padded. General LMA anesthesia was induced and the left leg was prepped and draped in usual sterile fashion. A time-out was performed and preop antibiotics were given. The left leg was exsanguinated and tourniquet was inflated to 275 mmHg. A standard lateral incision was made over the lateral fibula. The incision was taken through the subcutaneous tissue. Retractors were placed and the fracture was identified. The fracture was then washed out and all debris were removed. The fracture was then reduced anatomically and a single 22 mm lag screw was placed from anterior to posterior capturing the fragments. Once this was accomplished, a lateral 6-hole locking plate was applied and 2.7 mm screws were used to stabilize the plate onto the fibula. Two distal locking screws were used and 3 proximal nonlocking screws. This provided excellent stability of the plate and screws and the fracture site. Image intensifier was brought in and fracture was reduced anatomically and the hardware was in excellent position. At this point, care was given to the tibial side. A curvilinear incision was made over the medial malleolus. The incision was taken through the subcutaneous tissue. Saphenous vein and nerve were identified and retracted. The fracture was identified. The fracture was washed and all debris was removed. At this point, the fracture was reduced anatomically and 2 partially threaded 36 mm cancellous screws were placed in without any complication. This provided excellent stability of the fracture. There was excellent compression of the fracture site. There was some comminution posteriorly, although this did not add any instability to the ankle and it was left alone. At this point, image intensifier was brought in and final images were obtained. The fractures were reduced anatomically and tibiotalar joint was reduced anatomically. There was no syndesmotic injury. The mortise was intact. The hardware was in excellent position. At this point, all wounds were thoroughly irrigated using copious amount of fluid. The subcutaneous tissue was closed using 2-0 Vicryl suture. The skin was closed using 3-0 Monocryl suture. Local block was performed with Marcaine with epinephrine proximal to the wound. Sterile dressing was applied. The patient was placed in a sugar-tong splint with a posterior splint and was taken to recovery room in stable condition. All lap counts and instrument counts were okay. The tourniquet was deflated after placement of the splint. Alfredo Guerrier M.D. DR: Mary Jo JOB#: [id number] CC:
[2020-02-03] MEDS: oxyCONTIN 10mg tab ORAL SCH (21:34)
[2020-02-03] MEDS: ceFAZolin sod 1 GM in D5W 55 ML IVPB SCH (21:46)
--- NOTE | 2020-02-03 23:00 | NUR ---
NURSE NOTES: Done IV ATB without adverse effects. Pt is feeling comfortable. Will continue to monitor. A boot got delivered for right leg and is @ bed side.
[2020-02-04] VITALS: BP 103/55
[2020-02-04 04:00] VITALS: BP 113/64
[2020-02-04] MEDS: ceFAZolin sod 1 GM in D5W 55 ML IVPB SCH ×2 (05:56→13:59)
[2020-02-04 06:05] LABS: EOSINOPHILS % (AUTO) 2.1 % (0.0-3.0); HEMATOCRIT 34.3 % (37.0-47.0); MEAN CORPUSCULAR VOLUME 108 FL (80-99); MONOCYTES % (AUTO) 10.4 % (1.0-10.0); NEUTROPHILS % (AUTO) 56.5 % (45.0-75.0); PLATELET COUNT 213 K/UL (150-450); RED BLOOD COUNT 3.17 M/UL (4.20-5.40); RED CELL DISTRIBUTION WIDTH 12.7 % (11.6-14.8); WHITE BLOOD COUNT 8.1 K/UL (4.8-10.8)
[2020-02-04 06:13] LABS: ANION GAP 3 mmol/L (5-15); BLOOD UREA NITROGEN 6 mg/dL (7-18); CALCIUM 8.3 MG/DL (8.5-10.1); CARBON DIOXIDE 30 MMOL/L (21-32); CHLORIDE 105 MMOL/L (98-107); POTASSIUM 3.4 MMOL/L (3.5-5.1); SODIUM 138 MMOL/L (136-145)
--- NOTE | 2020-02-04 06:35 | NUR ---
NURSE HAND-OFF: Important Events on Shift:s/p surgery on 02/02, pain control, dressing kept dry and intact, DC planning today, No N/V. Patient Status: [stable] Diet: [regular diet] Pending Orders: [-] Pending Results/Labs:[CBC, BMP] Pending MD notification:[-] Latest Vital Signs: Temperature 98.6 , Pulse 69 , B/P 113 /64 , Respiratory Rate 18 , O2 SAT 98 , Room Air, O2 Flow Rate 6 . Vital Sign Comment: [] Latest Ames Fall Score: 60 Fall Risk: High Risk Safety Measures: Call light Within Reach, Bed Alarm , Side Rails Side Rails x2, Bed position Low and Locked. Fall Precautions: Yellow Gown Door Sign Patient Fall Education
--- NOTE | 2020-02-04 07:25 | NUR ---
NURSE NOTES: Handoff received from O RN. Patient is awake and alert, no signs of distress noted, no reports of pain at this time. Dressings are dry and intact, IV is intact and saline locked. Sensation and motor intact in ALLI lower extremities. Patient updated on plan of care and discharge today, as well as follow up on belongings in pre op. Bed is low and locked, side rails up x2, call light is within reach.
--- NOTE | 2020-02-04 07:35 | NUR ---
HAND-OFF: Report given to SLICK Ahumada. Round is done.
[2020-02-04 08:00] VITALS: BP 116/60
--- NOTE | 2020-02-04 08:44 | History and Physical Report ---
DATE OF ADMISSION: 02/02/2020 CHIEF COMPLAINT: Mechanical fall with sustained injuries to bilateral lower extremity. HISTORY OF PRESENT ILLNESS: This is a 69-year-old very delightful female with past medical history significant for microdiskectomy 20 years ago. Denies any history of diabetes, high blood pressure, or coronary artery disease, who presented to the hospital after had a mechanical fall, had slipped down some steps sustaining injury to right and left ankle as well as left hand. She presented to emergency department complaining about severe pain accompanied with her daughter. After initial evaluation in the emergency, the patient was noted to have left ankle fracture dislocated and right ankle fracture, nondisplaced distal fibula fracture and a left hand index proximal phalanx fracture. Subsequently, the patient was admitted to the hospital for surgical intervention. PAST MEDICAL HISTORY/PAST SURGICAL HISTORY: As above history of microdiskectomy over 20 years ago. MEDICATIONS AT HOME: None. ALLERGIES: No known drug allergies. SOCIAL HISTORY: She is a . She has children who lives in the area. She is independent with all activities at baseline. She denies any smoking, alcohol, or drugs. FAMILY HISTORY: Noncontributory. REVIEW OF SYSTEMS: Mostly as above. Denies any dysuria, frequency, or hematuria. Denies any hemoptysis or hematochezia. Denies any bright red blood per rectum. Denies any loss of consciousness. Denies any bowel or urine incontinence. Denies any suicidal or homicidal ideation. PHYSICAL EXAMINATION: VITAL SIGNS: On admission in the ER, temperature 98.4, pulse of 96, respirations 19, blood pressure 129/73. GENERAL: The patient is awake, responsive, in no acute distress. HEAD AND NECK: Pupils are equal and reactive to light. Extraocular movements intact. Neck was supple. No JVD. LUNGS: Good air entry. No wheezing or rales. HEART: S1, S2. Regular rhythm. No gallops. ABDOMEN: Soft, nondistended, and nontender. Positive bowel sounds. EXTREMITIES: No cyanosis, clubbing, or edema. The patient has bilateral lower extremity ankle tenderness to touch, swollen. Visible obvious deformity in the left ankle and tenderness to palpation, but without swelling or deformity of the right ankle. NEUROLOGIC: Cranial nerves II through XII grossly intact. The patient is moving all extremities except lower extremity due to the pain. RECTAL/GENITOURINARY: Refused and deferred. PSYCHIATRIC: Mood and affect is anxious. LABORATORY DATA: On admission, WBC of 6.4, hemoglobin 12, hematocrit 37, platelets 237,000. Sodium 140, potassium 3.7, chloride 107, bicarb 26, BUN 10, creatinine 1.1. GFR is 49.4. Glucose is 102. Calcium is 9.0. PT 10, INR 1.0, PTT of 24. Rapid COVID test is negative. The patient had a x-ray of the ankle. Left ankle shows trimalleolar ankle fracture with associated ankle dislocation. X-ray of the right ankle showed there is acute transverse fracture of the distal fibula below the level of the syndesmosis. Ankle mortise is intact on the view. Image portion of the hindfoot unremarkable. No radiopaque foreign body was identified. X-ray of the chest, no acute radiographic cardiopulmonary disease. X-ray of the finger, left finger second digit small acute fracture involving the radial aspect of the base of the second proximal phalanx. EKG, normal sinus rhythm with ventricular rate of 65, low-voltage QRS. ASSESSMENT: 1. Status post mechanical fall with a slip and fall with bilateral ankle fracture; left ankle fracture dislocation, right ankle with nondisplaced distal fibula fracture and left hand index proximal phalanx fracture. 2. History of microdiskectomy. PLAN: 1. Admit the patient to orthopedics unit. 2. We will follow up with Dr. Alfredo Guerrier, orthopedic consultation. The patient is at this time medically cleared for surgery. We follow up with his recommendation. 3. Pain control, NPO and follow laboratory in the morning. 4. DVT prophylaxis, heparin subcutaneous. 5. Code status, Full Code. Adam Oh M.D. DR: MINERVA JOB#: [id number] CC:
[2020-02-04] MEDS ORDERED: celeBREX 200mg Cap **SURGERY PATIENTS ONLY ORAL SCH (09:00)
[2020-02-04] MEDS: Docusate 100mg cap ORAL SCH ×2 (09:11→11:58)
[2020-02-04] MEDS: oxyCONTIN 10mg tab ORAL SCH (09:12)
[2020-02-04] MEDS: Heparin 5000 units/ml inj SUBQ SCH (09:13)
--- NOTE | 2020-02-04 10:16 | NUR ---
CASE MANAGEMENT:REVIEW 02/04/20 SI: POD #1...S/P ORIF 98.2 71 17 116/60 97% ON RA H/H-11.0/34.3 K-3.4 IS: IV ANCEF Q8HRS PROTONIX PO QD ASA PO QD CELEBREX PO QD OXYCONTIN 10MG PO Q12 : MED/SURG STATUS 3 EAST DCP: PLAN IS RETURN HOME ONCE MEDICALLY CLEARED FOR DISCHARGE PLAN: ADVANCE TO REGULAR DIET CAM BOOT DELIVERED TO BEDSIDE BY [facility] PROBABLE DISCHARGE HOME LATER TODAY
--- NOTE | 2020-02-04 10:43 | Orthopedic Progress Note ---
Orthopedic - Progress Note Subjective Symptoms: improved - CAM book delivered Objective Laboratory Tests Test 02/04/20 04:50 White Blood Count 8.1 K/UL (4.8-10.8) Red Blood Count 3.17 M/UL (4.20-5.40) L Hemoglobin 11.0 G/DL (12.0-16.0) L Hematocrit 34.3 % (37.0-47.0) L Mean Corpuscular Volume 108 FL (80-99) H Mean Corpuscular Hemoglobin 34.6 PG (27.0-31.0) H Mean Corpuscular Hemoglobin Concent 32.0 G/DL (32.0-36.0) Red Cell Distribution Width 12.7 % (11.6-14.8) Platelet Count 213 K/UL (150-450) Mean Platelet Volume 6.8 FL (6.5-10.1) Neutrophils (%) (Auto) 56.5 % (45.0-75.0) Lymphocytes (%) (Auto) 30.0 % (20.0-45.0) Monocytes (%) (Auto) 10.4 % (1.0-10.0) H Eosinophils (%) (Auto) 2.1 % (0.0-3.0) Basophils (%) (Auto) 1.0 % (0.0-2.0) Sodium Level 138 MMOL/L (136-145) Potassium Level 3.4 MMOL/L (3.5-5.1) L Chloride Level 105 MMOL/L (98-107) Carbon Dioxide Level 30 MMOL/L (21-32) Anion Gap 3 mmol/L (5-15) L Blood Urea Nitrogen 6 mg/dL (7-18) L Creatinine 1.0 MG/DL (0.55-1.30) Estimat Glomerular Filtration Rate > 60 mL/min (>60) Glucose Level 98 MG/DL (74-106) Calcium Level 8.3 MG/DL (8.5-10.1) L Last 24 Hour Vital Signs Date Time Temp Pulse Resp B/P (MAP) Pulse Ox O2 Delivery O2 Flow Rate FiO2 02/04/20 09:42 98.2 02/04/20 08:00 98.2 71 17 116/60 (78) 97 02/04/20 04:00 98.6 69 18 113/64 (80) 98 02/04/20 00:00 98.5 62 18 103/55 (71) 95 02/03/20 21:00 Room Air 02/03/20 20:00 98.9 72 18 123/68 (86) 96 02/03/20 18:45 98.1 62 18 118/69 (85) 96 02/03/20 17:45 98.2 62 18 116/60 (78) 97 02/03/20 17:14 98.3 61 18 113/61 (78) 96 02/03/20 16:50 98.2 63 20 119/59 (79) 96 02/03/20 16:40 97.5 63 13 128/63 99 Room Air 02/03/20 16:20 64 12 131/65 98 Room Air 02/03/20 16:05 67 12 128/73 100 Simple Mask 6 02/03/20 15:55 68 12 128/67 100 Simple Mask 6 02/03/20 15:45 80 14 125/71 100 Simple Mask 6 02/03/20 15:44 79 14 99 02/03/20 15:40 73 24 132/69 100 Simple Mask 6 02/03/20 15:35 97.6 79 13 142/80 99 Simple Mask 6 02/03/20 12:00 98.1 72 20 137/67 (90) 99 Intake and Output 02/03/20 02/04/20 19:00 07:00 Intake Total 950 ml 1475 ml Output Total 10 ml Balance 940 ml 1475 ml Intake Oral 650 ml IV Total 950 ml 825 ml Output Estimated Blood Loss 10 ml # Voids 3 Laboratory Tests Test 02/04/20 04:50 White Blood Count 8.1 K/UL (4.8-10.8) Red Blood Count 3.17 M/UL (4.20-5.40) L Hemoglobin 11.0 G/DL (12.0-16.0) L Hematocrit 34.3 % (37.0-47.0) L Mean Corpuscular Volume 108 FL (80-99) H Mean Corpuscular Hemoglobin 34.6 PG (27.0-31.0) H Mean Corpuscular Hemoglobin Concent 32.0 G/DL (32.0-36.0) Red Cell Distribution Width 12.7 % (11.6-14.8) Platelet Count 213 K/UL (150-450) Mean Platelet Volume 6.8 FL (6.5-10.1) Neutrophils (%) (Auto) 56.5 % (45.0-75.0) Lymphocytes (%) (Auto) 30.0 % (20.0-45.0) Monocytes (%) (Auto) 10.4 % (1.0-10.0) H Eosinophils (%) (Auto) 2.1 % (0.0-3.0) Basophils (%) (Auto) 1.0 % (0.0-2.0) Sodium Level 138 MMOL/L (136-145) Potassium Level 3.4 MMOL/L (3.5-5.1) L Chloride Level 105 MMOL/L (98-107) Carbon Dioxide Level 30 MMOL/L (21-32) Anion Gap 3 mmol/L (5-15) L Blood Urea Nitrogen 6 mg/dL (7-18) L Creatinine 1.0 MG/DL (0.55-1.30) Estimat Glomerular Filtration Rate > 60 mL/min (>60) Glucose Level 98 MG/DL (74-106) Calcium Level 8.3 MG/DL (8.5-10.1) L Assessment Post-op Diagnosis POD 1 Procedure Performed left ankle ORIF Additional Comments Rt ankle non displaced distal fibular fx. Plan Plan: discharge plan - home today with CAM walker and bedside commode. f/u with us as outpt 02/12. all home meds given to pt on written rx in pt's chart. CAM boot for Rt LE. 50% WB Rt LE Jocelyne Patel Feb 04, 2020 10:43
--- NOTE | 2020-02-04 10:57 | Pulmonology Progress Note ---
Subjective Allergies: Coded Allergies: No Known Allergies (Unverified , 02/02/20) Subjective afebrile, no leukocytosis pain controlled with analgesics Objective Last 24 Hour Vital Signs Date Time Temp Pulse Resp B/P (MAP) Pulse Ox O2 Delivery O2 Flow Rate FiO2 02/04/20 09:42 98.2 02/04/20 08:00 98.2 71 17 116/60 (78) 97 02/04/20 04:00 98.6 69 18 113/64 (80) 98 02/04/20 00:00 98.5 62 18 103/55 (71) 95 02/03/20 21:00 Room Air 02/03/20 20:00 98.9 72 18 123/68 (86) 96 02/03/20 18:45 98.1 62 18 118/69 (85) 96 02/03/20 17:45 98.2 62 18 116/60 (78) 97 02/03/20 17:14 98.3 61 18 113/61 (78) 96 02/03/20 16:50 98.2 63 20 119/59 (79) 96 02/03/20 16:40 97.5 63 13 128/63 99 Room Air 02/03/20 16:20 64 12 131/65 98 Room Air 02/03/20 16:05 67 12 128/73 100 Simple Mask 6 02/03/20 15:55 68 12 128/67 100 Simple Mask 6 02/03/20 15:45 80 14 125/71 100 Simple Mask 6 02/03/20 15:44 79 14 99 02/03/20 15:40 73 24 132/69 100 Simple Mask 6 02/03/20 15:35 97.6 79 13 142/80 99 Simple Mask 6 02/03/20 12:00 98.1 72 20 137/67 (90) 99 Intake and Output 02/03/20 02/04/20 19:00 07:00 Intake Total 950 ml 1475 ml Output Total 10 ml Balance 940 ml 1475 ml Intake Oral 650 ml IV Total 950 ml 825 ml Output Estimated Blood Loss 10 ml # Voids 3 General Appearance: WD/WN, no acute distress HEENT: normocephalic, atraumatic, anicteric, mucous membranes moist, PERRL Respiratory: lungs clear, normal breath sounds, no respiratory distress, no accessory muscle use Cardiovascular: normal peripheral pulses, normal rate Abdomen: normal bowel sounds, soft, non tender, non distended Extremities: other - RLE with posterior splint, LLE with posterior splint and dressed, neurovascular checks both BLE intact; LLE + 1 edema Neurologic: clay burner II-XII grossly normal, no motor/sensory deficits, abnormal gait, alert, oriented x 3, responsive Musculoskeletal: normal muscle bulk Microbiology Date/Time Source Procedure Growth Status 02/02/20 15:15 Nasopharynx SARS-CoV-2 RdRp Gene Assay - Final Complete Laboratory Tests 02/04/20 04:50: White Blood Count 8.1, Red Blood Count 3.17L, Hemoglobin 11.0L, Hematocrit 34.3L , Mean Corpuscular Volume 108H, Mean Corpuscular Hemoglobin 34.6H, Mean Corpuscular Hemoglobin Concent 32.0, Red Cell Distribution Width 12.7, Platelet Count 213, Mean Platelet Volume 6.8, Neutrophils (%) (Auto) 56.5, Lymphocytes (%) (Auto) 30.0, Monocytes (%) (Auto) 10.4H, Eosinophils (%) (Auto) 2.1, Basophils (%) (Auto) 1.0, Sodium Level 138, Potassium Level 3.4L, Chloride Level 105, Carbon Dioxide Level 30, Anion Gap 3L, Blood Urea Nitrogen 6L, Creatinine 1.0, Estimat Glomerular Filtration Rate > 60, Glucose Level 98, Calcium Level 8.3L Current Medications Medications (Trade) Dose Ordered Sig/John Route PRN Reason Start Time Stop Time Status Last Admin Dose Admin Acetaminophen (Tylenol) 650 mg Q4H PRN ORAL Temp >100.5 02/02/20 18:45 03/03/20 18:44 02/02/20 23:06 Acetaminophen (Tylenol) 650 mg Q6H PRN ORAL FEVER 02/03/20 18:00 03/04/20 17:59 Acetaminophen/ Hydrocodone Bitart (Bonesteel 5/325) 1 tab Q4H PRN ORAL For Pain 02/03/20 18:00 02/10/20 17:59 02/04/20 06:01 Aspirin (ASA) 325 mg BID ORAL 02/04/20 09:00 03/20/20 08:59 02/04/20 09:11 Cefazolin Sodium 1 gm/Dextrose 55 ml @ 110 mls/hr Q8HR IVPB 02/03/20 22:00 02/10/20 21:59 02/04/20 05:56 Celecoxib (CeleBREX) 200 mg DAILY ORAL 02/04/20 09:00 05/04/20 08:59 02/04/20 09:11 Dextrose (Dextrose 50%) 25 ml Q30M PRN IV Hypoglycemia 02/02/20 18:45 05/02/20 18:44 Dextrose (Dextrose 50%) 50 ml Q30M PRN IV Hypoglycemia 02/02/20 18:45 05/02/20 18:44 Docusate Sodium (Colace) 100 mg THREE TIMES A DAY ORAL 02/04/20 09:00 03/05/20 08:59 02/04/20 09:11 Heparin Sodium (Porcine) (Heparin 5000 units/ml) 5,000 units EVERY 12 HOURS SUBQ 02/02/20 21:00 03/18/20 20:59 02/04/20 09:13 Hydromorphone HCl (Dilaudid) 0.5 mg Q4H PRN SUBQ Mild Pain (Pain Scale 1-3) 02/03/20 18:00 02/10/20 17:59 Hydromorphone HCl (Dilaudid) 1 mg Q3H PRN SUBQ Moderate Pain (Pain Scale 4-6) 02/03/20 18:00 02/10/20 17:59 Morphine Sulfate (Morphine Sulfate) 2 mg Q6H PRN IVP MODERATE TO SEVERE PAIN 02/03/20 00:00 02/10/20 00:00 02/03/20 12:10 Ondansetron HCl (Zofran) 4 mg Q6H PRN IVP Nausea & Vomiting 02/03/20 18:00 03/04/20 17:59 Oxycodone HCl (OxyCONTIN) 10 mg EVERY 12 HOURS ORAL 02/03/20 21:00 02/10/20 20:59 02/04/20 09:12 Pantoprazole (Protonix) 40 mg DAILY ORAL 02/04/20 09:00 03/05/20 08:59 02/04/20 09:11 Polyethylene Glycol (Miralax) 17 gm HSPRN PRN ORAL Constipation 02/02/20 18:45 03/03/20 18:44 Temazepam (RestoriL) 7.5 mg HSPRN PRN ORAL Insomnia 02/03/20 18:00 02/10/20 17:59 Zolpidem Tartrate (Ambien) 5 mg HSPRN PRN ORAL Insomnia 02/02/20 18:45 02/09/20 18:44 Assessment/Plan Assessment/Plan ASSESSMENT s/p mechanical fall with slip Bilateral ankle fracture Left ankle bimalleolar fracture with dislocation of tibiotalar joint Status post open reduction internal fixation left ankle bimalleolar fracture Right ankle with nondisplaced distal fibula fracture Left hand index proximal phalanx fracture. Postoperative pain Mild anemia Hypokalemia PLAN of CARE MS floor postop day #1 IVF, pain management DVT and GI prophylaxis bowel regimen PT eval and treatment supportive care replace K monitor H&H with goal to keep hemoglobin above 7/stable dc plan as per ortho surgeon clearance with further recs re management and fup case discussed and evaluated by supervising physician Lorraine Russell NP Feb 04, 2020 10:57
--- NOTE | 2020-02-04 11:12 | NUR ---
NURSE NOTES: Spoke with Jocelyne Horvath about removing right posterior splint before placing CAM boot, she says ok to DC splint. She also approved home physical therapy and wheelchair.
--- NOTE | 2020-02-04 11:27 | NUR ---
NURSE NOTES: Spoke with Vilma Horvath case coordinator regarding PT recommendations for wheelchair with detachable armrests and elevating leg rests and home health (PT). Per CM, [employer] cannot be reached on the weekend and she will follow up on Thursday.
--- NOTE | 2020-02-04 11:35 | NUR ---
DISCHARGE PLANNING CAM BOOT WAS ORDERED YESTERDAY AND DELIVERED TO BEDSIDE TODAY NEW ORDERS PLACED OF TODAY (THURSDAY) REGARDING NEED FOR 1) WHEELCHAIR 2) BEDSIDE COMMODE 3) HOME HEALTH FAXED REFERRAL TO "[facility]" SPOKE WITH MIGUEL WHO SAID SHE WOULD CHECK ELIGIBILITY AND CALL THIS CYLINDER MACHINE OPERATOR BACK Addendum: 02/04/20 at 1318 by NARINDER CANCHOLA LVN LVN RECEIVED CALL FROM MIGUEL AT [facility]. SHE STATED THEY CANNOT SERVICE PATIENT CALLED [facility] T: [phone] AND SPOKE WITH SANDRA. PER SANDRA THE OFFICE IS CURRENTLY CLOSED BUT HE CAN TAKE A MESSAGE AND HAVE A HEAT TREATING OPERATOR CALL THIS CYLINDER MACHINE OPERATOR BACK CALLED [facility] T: [phone]. THEY SAID THEIR OFFICE IS CLOSED AND TOOK A MESSAGE CALLED [facility] AND LEFT A MESSAGE TRYING TO FIND A HOME HEALTH COMPANY THAT TAKES [employer] PPO Addendum: 02/04/20 at 1319 by NARINDER CANCHOLA LVN LVN PER NURSES NOTES PATIENT'S SON ALREADY SECURED A WHEELCHAIR HOME HEALTH AND WHEEL CHAIR IS STILL NEEDED
[2020-02-04 12:00] VITALS: BP 116/63
--- NOTE | 2020-02-04 12:35 | NUR ---
NURSE NOTES: Per patient, son already obtained a bedside commode for use at home.
--- NOTE | 2020-02-04 14:53 | NUR ---
INSURANCE CLINICALS/REVIEW/DC INSTRUCTIONS FAXED TO [facility] [phone]
--- NOTE | 2020-02-04 15:40 | NUR ---
NURSE NOTES: Patient safely discharged from to home via private vehicle. Patient information packet provided, belongings list signed and verified. Patient to follow up with outpatient surgery for belongings. DME provided; per Vilma LOZANO, CM will follow up on thursday about wheelchair and home health PT. IV and ID wristband removed.
[2020-02-04] MEDS ORDERED: Tubing IV Secondary IV ONE (15:41)
--- NOTE | 2020-02-04 15:55 | NUR ---
PT Note PT eval completed, treatment initiated. Patient is very cooperative and motivated. Mobility is restricted by weight bearing restrictions (NWB LLE, 50% wt bearing on the RLE and WBAT on the left UE). Recommend above DME's and HHPT for safety evaluation. Addendum: 02/04/20 at 1556 by RUI CONROY PT Amended: Links added.
--- NOTE | 2020-02-04 16:46 | Internal Med Progress Note ---
Subjective Date of Service: Feb 04, 2020 Physician Name Darell Sequeira Attending Physician Adam Oh MD Allergies: Coded Allergies: No Known Allergies (Unverified , 02/02/20) ROS Limited/Unobtainable: No Constitutional: Reports: no symptoms HEENT: Reports: no symptoms Cardiovascular: Reports: no symptoms Respiratory: Reports: no symptoms Gastrointestinal/Abdominal: Reports: no symptoms Genitourinary: Reports: no symptoms Neurologic/Psychiatric: Reports: no symptoms Subjective 69 YO F admitted after mechanical fall. Now left ankle fracture. Cover for Int Med-DR Oh. S/P ORIF left ankle fracture 02/02/20 Objective Last Vital Signs Date Time Temp Pulse Resp B/P (MAP) Pulse Ox O2 Delivery O2 Flow Rate FiO2 02/04/20 12:00 99.1 66 20 116/63 (80) 99 02/04/20 09:00 Room Air 02/03/20 16:05 6 Laboratory Tests Test 02/04/20 04:50 White Blood Count 8.1 K/UL (4.8-10.8) Red Blood Count 3.17 M/UL (4.20-5.40) L Hemoglobin 11.0 G/DL (12.0-16.0) L Hematocrit 34.3 % (37.0-47.0) L Mean Corpuscular Volume 108 FL (80-99) H Mean Corpuscular Hemoglobin 34.6 PG (27.0-31.0) H Mean Corpuscular Hemoglobin Concent 32.0 G/DL (32.0-36.0) Red Cell Distribution Width 12.7 % (11.6-14.8) Platelet Count 213 K/UL (150-450) Mean Platelet Volume 6.8 FL (6.5-10.1) Neutrophils (%) (Auto) 56.5 % (45.0-75.0) Lymphocytes (%) (Auto) 30.0 % (20.0-45.0) Monocytes (%) (Auto) 10.4 % (1.0-10.0) H Eosinophils (%) (Auto) 2.1 % (0.0-3.0) Basophils (%) (Auto) 1.0 % (0.0-2.0) Sodium Level 138 MMOL/L (136-145) Potassium Level 3.4 MMOL/L (3.5-5.1) L Chloride Level 105 MMOL/L (98-107) Carbon Dioxide Level 30 MMOL/L (21-32) Anion Gap 3 mmol/L (5-15) L Blood Urea Nitrogen 6 mg/dL (7-18) L Creatinine 1.0 MG/DL (0.55-1.30) Estimat Glomerular Filtration Rate > 60 mL/min (>60) Glucose Level 98 MG/DL (74-106) Calcium Level 8.3 MG/DL (8.5-10.1) L Microbiology Date/Time Source Procedure Growth Status 02/02/20 15:15 Nasopharynx SARS-CoV-2 RdRp Gene Assay - Final Complete Intake and Output 02/03/20 02/04/20 19:00 07:00 Intake Total 950 ml 1475 ml Output Total 10 ml Balance 940 ml 1475 ml Intake Oral 650 ml IV Total 950 ml 825 ml Output Estimated Blood Loss 10 ml # Voids 3 Objective PHYSICAL EXAMINATION: GENERAL: The patient is awake, responsive, in no acute distress. HEAD AND NECK: Pupils are equal and reactive to light. Extraocular movements intact. Neck was supple. No JVD. LUNGS: Good air entry. No wheezing or rales. HEART: S1, S2. Regular rhythm. No gallops. ABDOMEN: Soft, nondistended, and nontender. Positive bowel sounds. EXTREMITIES: No cyanosis, clubbing, or edema. The patient has bilateral lower extremity ankle tenderness to touch, swollen. Visible obvious deformity in the left ankle and tenderness to palpation, but without swelling or deformity of the right ankle. NEUROLOGIC: Cranial nerves II through XII grossly intact. The patient is moving all extremities except lower extremity due to the pain. RECTAL/GENITOURINARY: Refused and deferred. PSYCHIATRIC: Mood and affect is anxious. Assessment/Plan Assessment/Plan ASSESSMENT: 1. Status post mechanical fall with a slip and fall with bilateral ankle fracture; left ankle fracture dislocation, right ankle with nondisplaced distal fibula fracture and left hand index proximal phalanx fracture. 2. History of microdiskectomy. PLAN: 1. Admit the patient to orthopedics unit. 2. Dr. Alfredo Guerrier=orthopedic consultation. S/P ORIF left ankle fracture 02/02/20 with his recommendation. 3. Pain control, NPO and follow laboratory in the morning. 4. DVT prophylaxis, heparin subcutaneous. 5. Code status, Full Code. Darell Sequeira MD Feb 04, 2020 16:46
--- NOTE | 2020-02-06 10:41 | 48 Hour Post Anesthesia Eval ---
Post Anesthesia Evaluation Procedure: left ankle ORIF Date of Evaluation: Feb 06, 2020 Airway: patent Nausea: No Vomiting: No Pain Intensity: 0 Hydration Status: adequate Cardiopulmonary Status: at baseline Mental Status/LOC: patient returned to baseline Post-Anesthesia Complications: 0 Follow-up care needed: ready to discharge Mabel Bains MD Feb 06, 2020 10:41
--- NOTE | 2020-02-06 12:44 | NUR ---
DISCHARGE PLANNING CALLED [facility] AND SPOKE W/TIANA T: [phone] THEY ACCEPT [employer] PPO BUT ARE UNABLE TO SERVICE [place] MULTIPLE CALLS PLACED TO [facility] ~ PHONE [facility] THEN A MESSAGE COMES STATING "THE NUMBER YOU HAVE DIALED IS NOT IN SERVICE Addendum: 02/06/20 at 1636 by NARINDER CANCHOLA LVN LVN PATIENT HAS BEEN ACCEPTED BY [facility] T: [phone] F: [phone] SPOKE WITH JAMEL AND CHELA WHO BOTH CONFIRMED THEY WILL SEND STAFF OUT TO SEE PATIENT SOON POSSIBLE JAMEL SAID THEY WILL ARRANGE FOR WHEELCHAIR
--- NOTE | 2020-02-07 12:43 | Discharge Summary ---
Discharge Summary Discharge Summary _ DATE OF ADMISSION: 02/02/2020 DATE OF DISCHARGE: 02/04/2020 DISCHARGED BY: Dr Oh REASON FOR ADMISSION: 69 years old female with no significant past medical history, presented to emergency department after she slipped and sustained mechanical fall about 1 hour prior to arrival. Patient reported 10 out of 10 bilateral ankle pain . She denied dizziness, chest pain, shortness of breath , palpitations or loss of consciousness. Patient denied hitting her head. She denied neck or back pain. She reported deformity of the left ankle. No numbness. Patient was unable to bear weight. Upon evaluation vital signs were stable. Laboratory work-up revealed no leukocytosis, stable hemoglobin and hematocrit ; stable electrolytes and renal parameters. Rapid COVID-19 was negative. X-ray of the left ankle revealed trimalleolar ankle fracture with associated ankle dislocation. X-ray of the right ankle revealed acute transverse fracture of the distal fibula below the level of the syndesmosis. Ankle mortise intact. In emergency department patient undergone closed reduction of the right ankle fracture; patient was placed in a short leg posterior splint . Patient remained nonweightbearing Chest x-ray revealed no acute cardiopulmonary pathology. X-ray of the left fingers second digit revealed small acute fracture , involving the radial aspect and the base of the second proximal phalanx. Surgeon consulted. Patient received analgesic. Patient subsequently admitted to medical surgical floor for further management. CONSULTANTS: orthopedic surgeon Dr. Hernandez pulmonary/critical care Dr. Beckford [facility] COURSE: Patient admitted to medical surgical floor. Patient started on gentle IV hydration. Pain management was addressed. Surgeon seen and evaluated patient. Patient subsequently undergone on 02/01 open reduction internal fixation of the left ankle bimalleolar fracture. Postoperatively x-ray of the left ankle showed stable postsurgical changes. Physical therapy evaluation was done. Orthopedic surgeon cleared patient for discharge with CAM walker and bedside commode. Patient to follow-up with orthopedic surgeon 02/12 as outpatient. Surgeon allowed 50% weightbearing on the right lower extremity . Potassium was replaced. Bowel regimen instituted. DVT and GI prophylaxis provided. Hemoglobin and hematocrit were closely monitored with goal to keep hemoglobin above 7, remained stable. Prior to discharge hemoglobin 11, hematocrit 34.3. Patient clinically stabilized and was ready for discharge with home health services . FINAL DIAGNOSES: Status post mechanical slip and fall Bilateral ankle fracture Left ankle bimalleolar fracture with dislocation of tibiotalar joint Status post open reduction internal fixation left ankle bimalleolar fracture Right ankle with nondisplaced distal fibula fracture Left hand index proximal phalanx fracture Postoperative pain Mild anemia Hypokalemia DISCHARGE MEDICATIONS: See Medication Reconciliation list. DISCHARGE INSTRUCTIONS: Patient was discharged home with home health services. Follow-up with ortho surgeon on 02/12. I have been assigned to dictate discharge summary for this account. Lorraine Russell NP Feb 07, 2020 12:43
== END 2020-02-04 15:35 | disposition home health service (06) | DRG 494 ==
LOC: EDBD 13:39 → EMR 14:00 → 3E 16:05 → EDBEDREQ 17:27
PROC: 0QSK04Z Reposition Left Fibula with Internal Fixation Device, Open Approach (ICD-10-PCS; principal; 2020-02-02)
PROC: 0QSH04Z Reposition Left Tibia with Internal Fixation Device, Open Approach (ICD-10-PCS; principal; 2020-02-02)
DX: S82.842A Displaced bimalleolar fracture of left lower leg, initial encounter for closed fracture (principal); S93.05XA Dislocation of left ankle joint, initial encounter; S82.64XA Nondisplaced fracture of lateral malleolus of right fibula, initial encounter for closed fracture; S62.641A Nondisplaced fracture of proximal phalanx of left index finger, initial encounter for closed fracture; E87.6 Hypokalemia; D64.9 Anemia, unspecified; S82.831A Other fracture of upper and lower end of right fibula, initial encounter for closed fracture; W01.0XXA Fall on same level from slipping, tripping and stumbling without subsequent striking against object, initial encounter; G89.18 Other acute postprocedural pain
CPT/HCPCS: 36415; 71045; 76000; 80048; 80053; 84443; 85025; 85610; 85730; 86850; 86900; 86901; 93005; 94003; 94150; 96374; 96376; 99285; J2250; J2405; J2765; J8499; U0002